=== PATIENT | female | born 1990 | race African-American/Black ===

== ENCOUNTER 2017-10-31 12:30 | Emergency (ER) | payer SELFPAY ==
[2017-10-31 13:10] LABS: Pregnancy Test - Urine (BHCG) POSITIVE (Negative); Pregu Control Background? CLEAR/WHITE (CLR/WHITE); Pregu Control Bar Appear? YES (CONTROL BAR); Specific Gravity 1.006 (1.002-1.036)
[2017-10-31 13:20] LABS: #Basophils 0.1 thou/uL (0.0-0.2); #Eosinphils 0.1 thou/uL (0.0-0.7); #Lymphocytes 2.1 thou/uL (1.20-3.40); #Monocytes 0.6 thou/uL (0.11-0.59); #Neutrophils 5.5 thou/uL (1.40-6.50); %Basophils 1.1 % (0.0-1.0); %Eosinophils 0.7 % (0.0-10.0); %Lymphocytes 24.7 % (21.0-51.0); %Monocytes 7.2 % (0.0-10.0); %Neutrophils 66.3 % (42.0-75.0); Hemoglobin 13.5 g/dL (12.0-16.0); Mean Corpuscular HGB CONC 34.6 g/dL (32.0-36.0); Mean Corpuscular Hemoglobin 32.4 pg (27.0-31.0); Mean Corpuscular Volume 93.8 fl (81.0-99.0); Mean Platelet Volume 6.9 fL (7.4-10.4); Platelet Count 322 thou/uL (130-400); RBC Distribution Width 11.7 % (11.5-14.5); Red Blood Cell (RBC) Count 4.16 mill/uL (4.20-5.40); White Blood Cell (WBC) Count 8.4 thou/uL (4.8-10.8)
[2017-10-31 13:38] LABS: ALT (SGPT) 79 U/L (8-55); AST (SGOT) 34 U/L (5-34); Albumin 4.1 g/dL (3.5-5.0); Alkaline Phosphatase 56 U/L (40-150); Anion Gap 13 mmol/L (10-20); BUN (Urea Nitrogen) 9 mg/dL (7.0-18.7); Bilirubin, Total 0.7 mg/dL (0.2-1.2); Calc. Creatinine Clearance 0 mL/min (70-130); Calcium 9.8 mg/dL (7.8-10.44); Carbon Dioxide 21 mmol/L (22-29); Chloride 106 mmol/L (98-107); Estimated GFR-MDRD Greater than 90; Globulin 3.8 g/dL (2.4-3.5); Glucose 87 mg/dL (70-105); Potassium 3.3 mmol/L (3.5-5.1); Protein, Total 7.9 g/dL (6.0-8.3); Sodium 137 mmol/L (136-145)
== END 2017-10-31 15:03 | disposition home or self-care (01) ==
LOC: ERS 12:30
DX: O99.89 Other specified diseases and conditions complicating pregnancy, childbirth and the puerperium (principal); R11.0 Nausea
CPT/HCPCS: 36415; 80053; 81025; 85025; 93005

== ENCOUNTER 2018-07-01 00:56 | Inpatient (IN) | payer OTHER ==
[2018-07-01 01:33] VITALS: BMI 30.1
[2018-07-01] MEDS ORDERED: Ondansetron HCl/PF 4 MG/2 ML Vial IVP PRN ×4 (01:43→17:12)
[2018-07-01] MEDS ORDERED: Ibuprofen 800 MG TAB PO PRN (01:44)
[2018-07-01] MEDS ORDERED: Lidocaine 1% (PF) 30 ML VIAL SC PRN (01:44)
[2018-07-01] MEDS ORDERED: Morphine 4 MG/ML VIAL IM SCH (01:45)
[2018-07-01] MEDS ORDERED: Ondansetron HCl/PF 4 MG/2 ML Vial IVP SCH (01:45)
[2018-07-01] MEDS ORDERED: Meperidine HCl/PF 25 MG/ML VIAL IM/IV PRN (01:48)
[2018-07-01] MEDS ORDERED: Promethazine HCl 25 MG/ML VIAL IM PRN ×3 (01:48→17:12)
[2018-07-01] MEDS ORDERED: Acetaminophen 500 MG TAB PO PRN (01:48)
[2018-07-01] MEDS ORDERED: Butorphanol Tartrate 1 MG/ML VIAL SLOW IVP PRN (02:14)
[2018-07-01] MEDS ORDERED: Bupivacaine 0.5% 20 ML, fentaNYL Citrate/PF 400 MCG in Sodium Chloride 0.9% 72 ML EPIDURAL SCH (02:15)
[2018-07-01] MEDS ORDERED: DISCONTINUE ALL PREVIOUS NARCOTICS FS SCH (02:15)
--- NOTE | 2018-07-01 02:18 | PDOC.LDHP ---
Addendum entered and electronically signed by Pantera Smith DO 07/01/18 06: 13: Dr Charo Pineda Original Note: Labor and Delivery H&P Chief complaint: contractions HPI: 28 yo @ 40.2 by lmp presents for painful ctx since 46 this AM which have been persistent since onset. Denies LOF, vaginal bleeding, vaginal discharge. Reports good movement. Has associated nausea and vomiting with the contractions. Wishes to have epidural anesthesia for labor pain control. ROS: Gen: Denies fever/chills HEENT: Denies changes in vision CV: Denies cp, edema Respiratory: Denies SOB Abd: Reports n/v, denies diarrhea/constipation OB: Denies LOF, vaginal bleeding, reports good movement Current gestational age (weeks): 40 (+2) Due date: 06/29/18 Dating criteria: last menstrual period Grav: 1 Para: 0 Current complications: other (anemia of ) Current medications: iron Previous surgical history: none Allergies/Adverse Reactions: Allergies Allergy/AdvReac Type Severity Reaction Status Date / Time No Known Allergies Allergy Verified 07/01/18 01:34 Social history: none - Physical Exam Vital signs reviewed and normal: yes General: breathing through contractions, other (moderate discomfort with contractions) Heart: RRR Lungs: nonlabored breathing Abdomen: NTTP Extremeties: no edema FHT: category 1, variability present [place] contractions every: 2-3 minutes - Vaginal Exam cm dilated: 3 Effacement: 75% Station: -1 - OB Labs Blood type: O RH: positive Antibody Screen: negative HIV: negative RPR: negative HEPSAg: negative 1 hour GCT: negative GBS: negative Urine drug screen: not done Rubella: immune - Assessment L&D Assessment: term patient in labor 1) TIUP in labor - ctx every 2-3 minutes - FHT 135 baseline with mod variability, pos accels, no decels - Cervical exam 3.5/80/-1 - will admit to l&d for TIUP in labor; augmentation prn - maternal/ resusc maneuvers as indicated - primary ob provider notified 2) Anemia of : - hemagram and l&d labs pending - monitor - Plan Plan: admit to L&D, labor augmentation if indicated, anesthesia consult for pain management
[2018-07-01 02:23] LABS: Hemoglobin 10.6 g/dL (12.0-16.0); Mean Corpuscular HGB CONC 33.4 g/dL (32.0-36.0); Mean Corpuscular Hemoglobin 30.5 pg (27.0-31.0); Mean Corpuscular Volume 91.3 fL (78.0-98.0); Mean Platelet Volume 9.4 fL (7.4-10.4); Platelet Count 275 thou/uL (130-400); RBC Distribution Width 18.5 % (11.5-14.5); Red Blood Cell (RBC) Count 3.48 mill/uL (4.20-5.40)
[2018-07-01] MEDS ORDERED: Lidocaine HCl/Epinephrine 5 ML AMPUL IJ ONE (02:24)
[2018-07-01] MEDS ORDERED: Lidocaine 2% PF Inj 2 ML VIAL ONE (02:25)
[2018-07-01] MEDS ORDERED: Naloxone HCl 0.4 mg/ml Vial IVP PRN ×2 (02:45)
[2018-07-01] MEDS ORDERED: Eucerin (Mineral Oil/Petrolatum,White) 30 gm Jar TOP PRN (02:45)
[2018-07-01] MEDS ORDERED: ePHEDrine/0.9% NaCl/PF SYRINGE 50 mg/10 ml SLOW IVP PRN (02:45)
[2018-07-01] MEDS ORDERED: Communication Order-Pharmacy FS SCH (02:45)
[2018-07-01] MEDS ORDERED: fentaNYL Citrate/PF 400 MCG, Bupivacaine 0.5% 20 ML in Sodium Chloride 0.9% 72 ML EPIDURAL SCH (02:45)
[2018-07-01] MEDS ORDERED: diphenhydrAMINE 50 MG/ML VIAL IVP PRN (02:45)
[2018-07-01] MEDS ORDERED: Acetaminophen 325 MG TAB PO PRN (02:45)
[2018-07-01] MEDS ORDERED: Lactated Ringer's 500 ML IV PRN (02:45)
[2018-07-01 03:01] LABS: HBSAg Index 0.18 S/CO (0-0.99); HIV (1/2) Antibody/Antigen Non-Reactive (NonReactive); HIV 1/2 INDEX 0.07 S/CO (<1.00); Hep B Surf Ag Non-Reactive S/CO (NonReactive)
[2018-07-01] MEDS: Lactated Ringer's 1,000 ML IV SCH ×3 (03:05→10:03)
[2018-07-01 05:31] LABS: Syphilis Antibody Nonreactive (Nonreactive); Syphilis Antibody Index 0.04 S/CO (<1.00 Non-Reactive)
--- NOTE | 2018-07-01 10:31 | PDOC.LDPN ---
Labor & Delivery Progress Note - Subjective Subjective: comfortable - Objective Vital signs reviewed and normal: yes General: NAD Uterine fundus: non tender SVE: @ [address] Vera Dilation: 8.5 Effacement: 100% Station: 0 FHT: category 2 (2 minute long deceleration with slow recovery, now baseline in 150s/mod amna) [place] contractions every: 1-2 minutes Procedures: AROM AROM: meconium stained fluid (particulate mec) - Assessment (1) Term Code(s): Z34.80 - ENCOUNTER FOR SUPRVSN OF NORMAL , UNSP TRIMESTER Current Visit: Yes Status: Acute Comment: AROM with particulate mec SVE: 8.5/100/[address] 2 minute long decel with recovery -Will monitor closely Plan: continue plan of care
[2018-07-01] MEDS: NS / Oxytocin 40 units/1000ml 1,000 ML IV PRN ×2 (13:45→14:41)
[2018-07-01] MEDS ORDERED: Methylergonovine 0.2 MG/ML VIAL ONE (14:06)
--- NOTE | 2018-07-01 14:37 | PDOC.OPDEL ---
OB Operative/Delivery Note Pre-Delivery Diagnosis: active labor Procedure/Post Delivery Dx: spontaneous vaginal delivery Anesthesia: epidural - Additional Findings/Plan Placenta delivered: spontaneous Repaired Obstetrical Laceration: 2nd degree Estimated blood loss: 925 mL Post delivery plan: routine recovery (Difficult laceration to repair and control bleeding, resulting in above average blood loss. However, vitals stable , uterus firm, placenta appears intact, no cervical lacerations were noted. Perineal perforating vessels were injured and somewhat difficult to control. Patient now stable, recovering with baby in LDR. Methergine and Pitocin given.)
[2018-07-01] MEDS ORDERED: Lanolin Ointment 7 GM TUBE TOP PRN (17:12)
[2018-07-01] MEDS ORDERED: Zolpidem Tartrate 5 MG TAB PO PRN (17:12)
[2018-07-01] MEDS ORDERED: HYDROcodone/Acetaminophen 5/325 mg Tablet PO PRN ×2 (17:12)
[2018-07-01] MEDS ORDERED: Preparation H Ointment 28 GM TUBE PR PRN (17:12)
[2018-07-01] MEDS ORDERED: Misoprostol 200 MCG TAB VAG PRN (17:12)
[2018-07-01] MEDS ORDERED: Bisacodyl 10 MG SUPP PR PRN (17:12)
[2018-07-01] MEDS ORDERED: NS / Oxytocin 40 units/1000ml 1,000 ML IV SCH (17:12)
[2018-07-01] MEDS ORDERED: Benzocaine/Menthol 20-0.5% 60 ML CAN TOP PRN (17:12)
[2018-07-01] MEDS ORDERED: Methylergonovine 0.2 MG/ML VIAL IM PRN (17:12)
[2018-07-01] MEDS ORDERED: diphenhydrAMINE 25 MG CAP PO PRN (17:12)
[2018-07-01] MEDS ORDERED: Milk Of Magnesia 30 ML UDCUP PO PRN (17:12)
[2018-07-01 18:00] LABS: #Lymphocytes 0.8 thou/uL (1.20-3.40); #Neutrophils 13.4 thou/uL (1.40-6.50); %Basophils 0.2 % (0.0-1.0); %Eosinophils 0.1 % (0.0-10.0); %Lymphocytes 5.5 % (21.0-51.0); %Monocytes 6.7 % (0.0-10.0); %Neutrophils 87.4 % (42.0-75.0); Hemoglobin 9.5 g/dL (12.0-16.0); Mean Corpuscular HGB CONC 32.4 g/dL (32.0-36.0); Mean Corpuscular Volume 92.7 fL (78.0-98.0); Mean Platelet Volume 8.7 fL (7.4-10.4); Platelet Count 208 thou/uL (130-400); RBC Distribution Width 18.4 % (11.5-14.5); Red Blood Cell (RBC) Count 3.18 mill/uL (4.20-5.40); White Blood Cell (WBC) Count 15.3 thou/uL (4.8-10.8)
[2018-07-01] MEDS: Ibuprofen 800 MG TAB PO SCH (20:29)
[2018-07-01] MEDS: Docusate Calcium (SURFAK) 240 MG CAP PO SCH (20:29)
[2018-07-01] MEDS ORDERED: Bupivacaine/Epinephrine 0.25% 30 ML VIAL ONE (21:00)
[2018-07-02] MEDS: Ibuprofen 800 MG TAB PO SCH ×3 (05:46→22:43)
[2018-07-02] MEDS: Docusate Calcium (SURFAK) 240 MG CAP PO SCH ×2 (08:50→22:43)
[2018-07-02] MEDS: Ferrous Sulfate 325 MG TAB PO SCH ×2 (08:56→17:45)
[2018-07-02] MEDS ORDERED: Varicella virus, LIVE 0.5 ML VIAL SC ONE (09:00)
[2018-07-02] MEDS ORDERED: Measles/Mumps/Rubella 10 MCG/0.5 ML VIAL SC ONE (09:00)
[2018-07-02] MEDS ORDERED: Adacel (T-DAP) 0.5 ML VIAL IM ONE (09:00)
--- NOTE | 2018-07-02 19:10 | PDOC.PP ---
Post Progress Note PO intake tolerated: yes Flatus: yes Ambulation: yes Vital Signs (12 hours) Temp Pulse Resp BP 07/02/18 12:11 98.1 F 76 18 116/73 07/02/18 08:57 98.3 F 72 16 111/66 Weight Weight 170 lb - Physical Examination General: NAD Cardiovascular: no m/r/g Respiratory: clear to auscultation bilaterally Abdominal: + bowel sounds Extremities: negative homans (B) Neurological: no gross focal deficits Psychiatric: A&Ox3, normal affect Result Diagrams: 07/01/18 17:53 Additional Labs: Post Labs Blood Type O POSITIVE 07/01/18 02:09 Hep Bs Antigen Non-Reactive S/CO (NonReactive) 07/01/18 02:09 - Assessment/Plan PPD 1, doing very well. No complaints. DC Home planned tomorrow.
--- NOTE | 2018-07-03 05:48 | OP ---
DATE OF SERVICE: 07/01/2018 PREOPERATIVE DIAGNOSES: Intrauterine at 40 weeks and 2 days with spontaneous onset of labo r, meconium. POSTOPERATIVE DIAGNOSES: Intrauterine at 40 weeks and 2 days with spontaneous onset of lab or, meconium. PROCEDURE: Spontaneous vaginal delivery over second degree laceration of the perineum with postpartu m hemorrhage. FINDINGS: Viable male infant weighing 3956 grams or 8 pounds 12 ounces, Apgars 8 and 9. Nuchal cord x1 noted at delivery. COMPLICATIONS: hemorrhage, which responded to Methergine and Pitocin administration as we ll as repair of a perineal laceration that was relatively hemorrhagic until fixed. DETAILS OF THE PROCEDURE: Ms. Landeros presented to the emergency room at [facility] where she was admitted for labor. She was augmented with Pitocin. Membranes were artificially ruptured. Meconium was noted. Once completely dilated, she was allowed to push and pushed effective ly delivering a baby in a vertex presentation. Patient began some posterior tearing of the peritoneu m even before the head was out due to relatively small vaginal introitus and a large fetus. Her bone structure was adequate and there was no difficulty delivering the baby. The baby's shoulders once o ut the baby's mouth and nose were bulb suctioned, cord clamped and cut and baby handed waiting attend ants. Fundal massage was performed and the placenta delivered intact 2-0 and 3-0 chromic were used t o repair the posterior perineum and a small extension into the posterior vaginal vault. Some bleedin g was still noted after the repair and 2-0 and 3-0 chromic were used to obtain hemostasis. During th is time, bleeding was relatively brisk resulting in higher than average blood loss; however, administ ration of Methergine and Pitocin seemed to bring the bleeding to a normal level by the end of the per itoneal repair. Patient was observed closely and allowed to recover in the labor and delivery room.
[2018-07-03] MEDS: Ibuprofen 800 MG TAB PO SCH (06:09)
[2018-07-03 07:45] VITALS: BP 112/63; TEMP 98.1
[2018-07-03] MEDS: Ferrous Sulfate 325 MG TAB PO SCH (09:42)
[2018-07-03] MEDS: Docusate Calcium (SURFAK) 240 MG CAP PO SCH (09:43)
== END 2018-07-03 12:15 | disposition home or self-care (01) | DRG 774 ==
LOC: L&D/OP 00:56 → L&D 02:12 → 3SE 16:58
PROVIDERS: ADMIT Obstetrics & Gynecology; ATTEND Obstetrics & Gynecology
PROC: 10E0XZZ Delivery of Products of Conception, External Approach (ICD-10-PCS; principal; 2018-07-01)
PROC: 0KQM0ZZ Repair Perineum Muscle, Open Approach (ICD-10-PCS; 2018-07-01)
PROC: 10907ZC Drainage of Amniotic Fluid, Therapeutic from Products of Conception, Via Natural or Artificial Opening (ICD-10-PCS; 2018-07-01)
DX: O48.0 Post-term pregnancy (principal); O72.1 Other immediate postpartum hemorrhage; Z3A.40 40 weeks gestation of pregnancy; Z37.0 Single live birth; O70.1 Second degree perineal laceration during delivery; O69.81X0 Labor and delivery complicated by cord around neck, without compression, not applicable or unspecified; O77.0 Labor and delivery complicated by meconium in amniotic fluid; O99.02 Anemia complicating childbirth; D64.9 Anemia, unspecified
CPT/HCPCS: 36415; 51702; 85027; 86780; 86850; 86900; 86901; 87340; 87389; 99285; J2001; J2210; J2405; J3010; J3490; J7050

== ENCOUNTER 2019-02-07 13:52 | Emergency (ER) | payer OTHER | END 2019-02-07 14:56 | disposition left against medical advice (07) | LOC: ERS 13:52 | DX: Z53.21 Procedure and treatment not carried out due to patient leaving prior to being seen by health care provider (principal) ==

== ENCOUNTER 2020-02-24 03:59 | Outpatient (CLI) | payer OTHER ==
[2020-02-24 18:17] LABS: SARS-CoV-2 MS2 Positive; SARS-CoV-2 N Gene Negative; SARS-CoV-2 S Gene Negative; SARS-CoV-2 orf1ab Negative
== END 2020-02-24 04:00 | disposition home or self-care (01) ==
LOC: ERS 03:59
PROVIDERS: ATTEND Obstetrics & Gynecology
DX: Z01.812 Encounter for preprocedural laboratory examination (principal); Z11.59 Encounter for screening for other viral diseases
CPT/HCPCS: 87635; U0003

== ENCOUNTER 2020-02-25 19:15 | Inpatient (IN) | payer OTHER ==
[~2020-02-25 19:15] MED LIST: Bupivacaine/Epinephrine 0.25% 30 ML VIAL ONE
[2020-02-25 23:41] VITALS: BMI 33.0
[2020-02-25] MEDS ORDERED: NS w/ Oxytocin 10 units 500 ML IV SCH ×2 (23:45)
[2020-02-25] MEDS ORDERED: Zolpidem Tartrate 5 MG TAB PO PRN (23:49)
[2020-02-25] MEDS ORDERED: Promethazine HCl 25 MG/ML VIAL IM PRN (23:49)
[2020-02-25] MEDS ORDERED: NS / Oxytocin 40 units/1000ml 1,000 ML IV PRN (23:49)
[2020-02-25] MEDS ORDERED: Docusate 100 MG CAP PO PRN (23:49)
[2020-02-25] MEDS ORDERED: Lidocaine 1% (PF) 30 ML VIAL SC PRN (23:49)
[2020-02-25] MEDS ORDERED: Misoprostol 200 MCG TAB PR PRN (23:49)
[2020-02-25] MEDS ORDERED: Acetaminophen 500 MG TAB PO PRN (23:49)
[2020-02-25] MEDS ORDERED: Butorphanol Tartrate 1 MG/ML VIAL SLOW IVP PRN (23:49)
[2020-02-25] MEDS ORDERED: HYDROcodone/Acetaminophen 5/325 mg Tablet PO PRN ×2 (23:49)
[2020-02-25] MEDS ORDERED: Methylergonovine 0.2 MG/ML VIAL IM PRN (23:49)
[2020-02-25] MEDS ORDERED: hydrALAZINE 20 MG/ML VIAL SLOW IVP PRN (23:49)
[2020-02-25] MEDS ORDERED: Diphenoxylate HCl/Atropine Tablet PO PRN ×2 (23:49)
[2020-02-25] MEDS ORDERED: Ibuprofen 800 MG TAB PO PRN (23:49)
[2020-02-25] MEDS ORDERED: Ondansetron PF 4 MG/2 ML Vial IVP PRN (23:49)
[2020-02-25] MEDS ORDERED: Carboprost 250 MCG/ML AMP IM PRN (23:49)
--- NOTE | 2020-02-25 23:54 | PDOC.LDHP ---
Labor and Delivery H&P Chief complaint: scheduled induction HPI: 30 y/o at 39 weeks and 1 day for term induction of labor. Current gestational age (weeks): 39 Due date: 03/03/20 Grav: 2 Para: 1 Current complications: none Abnormal US findings: No Current medications: pre- vitamins Previous surgical history: none Allergies/Adverse Reactions: Allergies Allergy/AdvReac Type Severity Reaction Status Date / Time No Known Allergies Allergy Verified 01/04/20 09:50 Social history: none - Physical Exam Vital signs reviewed and normal: yes General: NAD, resting Heart: RRR Lungs: CTAB Abdomen: gravid Extremeties: no edema FHT: category 1 - Vaginal Exam cm dilated: 1 - Assessment L&D Assessment: elective induction at term - Plan Plan: admit to L&D, cervical ripening
[2020-02-26] MEDS: Misoprostol 100 MCG TAB VAG SCH ×3 (00:11→15:56)
[2020-02-26] MEDS: Lactated Ringer's 1,000 ML IV SCH ×3 (00:11→15:56)
[2020-02-26 00:53] LABS: Hemoglobin 9.7 g/dL (12.0-16.0); Mean Corpuscular HGB CONC 31.8 g/dL (32.0-36.0); Mean Corpuscular Hemoglobin 27.9 pg (27.0-31.0); Mean Corpuscular Volume 87.7 fL (78.0-98.0); Platelet Count 291 thou/uL (130-400); RBC Distribution Width 18.7 % (11.5-14.5); Red Blood Cell (RBC) Count 3.48 mill/uL (4.20-5.40); White Blood Cell (WBC) Count 6.9 thou/uL (4.8-10.8)
[2020-02-26 01:30] LABS: HBSAg Index 0.17 S/CO (0-0.99); Hep B Surf Ag Non-Reactive S/CO (NonReactive)
[2020-02-26 05:06] LABS: Syphilis Antibody Nonreactive (Nonreactive); Syphilis Antibody Index 0.04 S/CO (<1.00 Non-Reactive)
[2020-02-26] MEDS ORDERED: Fentanyl 4 mcg/Bup 0.1% Cadd 100 ML ONE (08:35)
[2020-02-26] MEDS ORDERED: diphenhydrAMINE 50 MG/ML VIAL IVP PRN (09:09)
[2020-02-26] MEDS ORDERED: Naloxone HCl 0.4 mg/ml Vial IVP PRN ×2 (09:09)
[2020-02-26] MEDS ORDERED: Lactated Ringer's 500 ML IV PRN (09:09)
[2020-02-26] MEDS ORDERED: Promethazine HCl 25 MG/ML VIAL IM PRN ×2 (09:09→15:56)
[2020-02-26] MEDS ORDERED: Acetaminophen 325 MG TAB PO PRN (09:09)
[2020-02-26] MEDS ORDERED: EPHEDRINE 25 MG/5 ML SYRINGE SLOW IVP PRN (09:09)
[2020-02-26] MEDS ORDERED: Ondansetron PF 4 MG/2 ML Vial IVP PRN ×2 (09:09→15:56)
[2020-02-26] MEDS ORDERED: Fentanyl 4 mcg/Bupivacaine 0.1% Cassette 100 ML EPIDURAL SCH (09:15)
[2020-02-26] MEDS ORDERED: Communication Order-Pharmacy FS SCH (09:15)
[2020-02-26 14:46] LABS: Actual Bicarbonate (HCO3a) 22.6 mEq/L (22-28); Base Excess (BEa) -7.2 mEq/L (-2.0 to +3.0)
[2020-02-26 14:48] LABS: Actual Bicarbonate (HCO3v) 21 mEq/L (22-28); Base Excess -6.2 mEq/L (-2.0 to +3.0); pH (Cord, venous) 7.28 (7.32-7.43)
[2020-02-26] MEDS ORDERED: Zolpidem Tartrate 5 MG TAB PO PRN (15:56)
[2020-02-26] MEDS ORDERED: diphenhydrAMINE 25 MG CAP PO PRN (15:56)
[2020-02-26] MEDS ORDERED: Benzocaine-Menthol 82.5 ML CAN TOP PRN (15:56)
[2020-02-26] MEDS ORDERED: Bisacodyl 10 MG SUPP PR PRN (15:56)
[2020-02-26] MEDS ORDERED: hydrALAZINE 20 MG/ML VIAL SLOW IVP PRN (15:56)
[2020-02-26] MEDS ORDERED: Lanolin Ointment 7 GM TUBE TOP PRN (15:56)
[2020-02-26] MEDS ORDERED: Milk Of Magnesia 30 ML UDCUP PO PRN (15:56)
[2020-02-26] MEDS ORDERED: Preparation H Ointment 28 GM TUBE PR PRN (15:56)
[2020-02-26] MEDS ORDERED: NS / Oxytocin 40 units/1000ml 1,000 ML IV SCH (15:56)
[2020-02-26] MEDS ORDERED: Methylergonovine 0.2 MG/ML VIAL IM PRN (15:56)
[2020-02-26] MEDS ORDERED: HYDROcodone/Acetaminophen 5/325 mg Tablet PO PRN ×2 (15:56)
[2020-02-26] MEDS: Ferrous Sulfate 325 MG TAB PO SCH (18:02)
[2020-02-26] MEDS: Docusate Calcium (SURFAK) 240 MG CAP PO SCH (21:54)
[2020-02-26] MEDS: Ibuprofen 800 MG TAB PO SCH (21:54)
[2020-02-27] MEDS: Ibuprofen 800 MG TAB PO SCH ×3 (05:39→13:47)
[2020-02-27 05:58] LABS: Hemoglobin 11.1 g/dL (12.0-16.0); Mean Corpuscular Hemoglobin 28.5 pg (27.0-31.0); Mean Platelet Volume 9.7 fL (7.4-10.4); Platelet Count 265 thou/uL (130-400); RBC Distribution Width 18.6 % (11.5-14.5); Red Blood Cell (RBC) Count 3.89 mill/uL (4.20-5.40); White Blood Cell (WBC) Count 9.8 thou/uL (4.8-10.8)
[2020-02-27] MEDS: Ferrous Sulfate 325 MG TAB PO SCH ×2 (07:33→16:07)
[2020-02-27] MEDS: Docusate Calcium (SURFAK) 240 MG CAP PO SCH (07:33)
[2020-02-27] MEDS ORDERED: Varicella virus, LIVE 0.5 ML VIAL SC ONE (09:00)
[2020-02-27] MEDS ORDERED: Measles/Mumps/Rubella 10 MCG/0.5 ML VIAL SC ONE (09:00)
[2020-02-27] MEDS ORDERED: Prenatal Vitamin 1 TAB PO SCH (09:00)
[2020-02-27] MEDS ORDERED: Adacel (T-DAP) 0.5 ML SYRINGE IM ONE (09:00)
[2020-02-27 11:41] VITALS: BP 116/74; TEMP 98
--- NOTE | 2020-02-28 08:45 | DN ---
DATE OF PROCEDURE: 02/26/2020 TIME: 1357 hours central daylight savings time. PREOPERATIVE DIAGNOSIS: Intrauterine at 39 weeks and one day with a term induction of labor. POSTOPERATIVE DIAGNOSES: 1. Intrauterine at 39 weeks and one day with a term induction of labor. 2. Terminal bradycardia encountered when the patient began pushing. PROCEDURE PERFORMED: Vacuum assisted vaginal delivery using the Mityvac system. FINDINGS: Viable female weighing 3484 g or 7 pounds 11 ounces with a nuchal cord tightly around the neck at delivery, with Apgars of 1 minute 4, 5 minutes 8 , and 10 minutes of 9. QUANTITATIVE BLOOD LOSS: 320 mL. COMPLICATIONS: None. PROCEDURE IN DETAIL: The patient presented to [facility] where she was admitted to the labor and delivery service. The patient underwent labor with normal cervical dilatation until she was found to be completely dilated. The patient began pushing after membranes were artificially ruptured. Her cervix was completely dilated and she pushed well. However, we began encountering bradycardia almost immediately. It was decided after a couple of minutes to expedite delivery using the vacuum. The Mityvac vacuum was applied to the head and used through two contractions resulting in the delivery of the baby. A nuchal cord was reduced on the perineum, which was relatively tight. The baby was placed on mom's abdomen while the cord was quickly clamped and cut and baby handed over to the waiting baby team. The NICU team had to come into the room and was available immediately at delivery. Pitocin was started. Placenta delivered with fundal massage, intact and without difficulties. No injuries were noted. Cytotec 800 mcg was placed per rectum after the uterus was found to be somewhat floppy and several minutes later, it was checked again and was very firm at that time. Hemostasis was assured. Quantitative blood loss was calculated. Inspection of the cervix, vaginal vault, and perineum did not reveal any lacerations needing suturing. Once again, hemostasis was within normal limits and the patient was allowed to recover in the labor and delivery room. Baby went to nursery. Job ID: [id number] [id number]
== END 2020-02-27 16:40 | disposition home or self-care (01) | DRG 807 ==
LOC: L&D 22:40 → 3SW 02-26 17:15
PROVIDERS: ADMIT Obstetrics & Gynecology; ATTEND Obstetrics & Gynecology
PROC: 10D07Z6 Extraction of Products of Conception, Vacuum, Via Natural or Artificial Opening (ICD-10-PCS; principal; 2020-02-25)
PROC: 10907ZC Drainage of Amniotic Fluid, Therapeutic from Products of Conception, Via Natural or Artificial Opening (ICD-10-PCS; 2020-02-25)
PROC: 3E0P7VZ Introduction of Hormone into Female Reproductive, Via Natural or Artificial Opening (ICD-10-PCS; 2020-02-25)
PROC: 3E033VJ Introduction of Other Hormone into Peripheral Vein, Percutaneous Approach (ICD-10-PCS; 2020-02-25)
DX: O69.1XX0 Labor and delivery complicated by cord around neck, with compression, not applicable or unspecified (principal); Z37.0 Single live birth; O99.89 Other specified diseases and conditions complicating pregnancy, childbirth and the puerperium; R00.1 Bradycardia, unspecified; Z3A.39 39 weeks gestation of pregnancy
CPT/HCPCS: 36415; 82805; 85027; 86780; 86850; 86900; 86901; 87340; J0595; J2590

== ENCOUNTER 2021-03-03 10:26 | Emergency (ER) | payer OTHER ==
[2021-03-03] MEDS ORDERED: Acetaminophen 500 MG TAB ONE (11:30)
[2021-03-03] MEDS ORDERED: Ketorolac Tromethamine 30 MG/ML VIAL ONE (11:31)
[2021-03-03] MEDS ORDERED: Ondansetron PF 4 MG/2 ML Vial ONE (11:31)
[2021-03-03] MEDS ORDERED: cefTRIAXone\\ROCEPHIN 2 GM VIAL ONE (11:31)
[2021-03-03 11:35] LABS: #Lymphocytes 1.1 thou/uL (1.20-3.40); #Monocytes 0.7 thou/uL (0.11-0.59); #Neutrophils 5.7 thou/uL (1.40-6.50); %Basophils 0.2 % (0.0-1.0); %Eosinophils 0.1 % (0.0-10.0); %Lymphocytes 14.5 % (21.0-51.0); %Monocytes 8.7 % (0.0-10.0); %Neutrophils 76.6 % (42.0-75.0); Hemoglobin 15.2 g/dL (12.0-16.0); Mean Corpuscular HGB CONC 32.7 g/dL (32.0-36.0); Mean Corpuscular Hemoglobin 29.5 pg (27.0-31.0); Mean Corpuscular Volume 90.1 fL (78.0-98.0); Mean Platelet Volume 7.9 fL (7.4-10.4); Platelet Count 282 thou/uL (130-400); RBC Distribution Width 11.7 % (11.5-14.5); Red Blood Cell (RBC) Count 5.17 mill/uL (4.20-5.40); White Blood Cell (WBC) Count 7.4 thou/uL (4.8-10.8)
[2021-03-03 11:59] LABS: BHCG - Serum Negative (NEGATIVE); Pregs Control Background? CLEAR/WHITE (CLR/WHITE); Pregs Control Bar Appear? YES (CONTROL BAR)
[2021-03-03 12:02] LABS: ALT (SGPT) 43 U/L (8-55); AST (SGOT) 34 U/L (5-34); Albumin 4.4 g/dL (3.5-5.0); Alkaline Phosphatase 65 U/L (40-110); Anion Gap 15 mmol/L (10-20); BUN (Urea Nitrogen) 14 mg/dL (7.0-18.7); Bilirubin, Total 0.7 mg/dL (0.2-1.2); Calc. Creatinine Clearance 0 mL/min (70-130); Calcium 9.5 mg/dL (7.8-10.44); Carbon Dioxide 20 mmol/L (22-29); Chloride 99 mmol/L (98-107); Globulin 4.1 g/dL (2.4-3.5); Glucose 120 mg/dL (70-105); Potassium 3.3 mmol/L (3.5-5.1); Protein, Total 8.5 g/dL (6.0-8.3); Sodium 131 mmol/L (136-145)
[2021-03-03 13:08] LABS: Bacteria/HPF None Seen HPF (None Seen); Bilirubin Negative (Negative); Blood, Urine Negative (Negative); Clarity Clear (Clear); Glucose, Urine (Dipstick) Normal (Negative); Ketone, Urine Trace mg/dL (Negative); Leukocyte Negative Leu/uL (Negative); Nitrite Negative (Negative); Protein, Urine (Dipstick) 30 mg/dL (Neg-Trace); RBC/HPF 0-3 HPF (0-3); WBC/HPF 0-3 HPF (0-3); pH, Urine 6.5 (5.0-9.0)
[2021-03-03 13:10] LABS: Specific Gravity, Urine Greater than 1.060 (1.002-1.036)
[2021-03-03] MEDS ORDERED: Iopamidol-370 76% 500 ML 1 ML ONE (13:42)
[2021-03-03 20:31] LABS: SARS-CoV-2 PCR by NAA DETECTED (NotDetected)
== END 2021-03-03 14:02 | disposition home or self-care (01) ==
LOC: ERS 10:26
DX: U07.1 COVID-19 (principal); J12.82 Pneumonia due to coronavirus disease 2019; R00.0 Tachycardia, unspecified
CPT/HCPCS: 36415; 71045; 74177; 80053; 81003; 81015; 83605; 84703; 85025; 87040; 87086; 87635; 93005; 96365; 96375; J0696; J1885; J2405; Q9967; U0003; U0005

== ENCOUNTER 2021-03-06 19:54 | Emergency (ER) | payer OTHER ==
[~2021-03-06 19:54] MED LIST changes: -Bupivacaine/Epinephrine 0.25% 30 ML VIAL ONE; +Iopamidol-370 76% 500 ML 1 ML ONE
[2021-03-06] MEDS ORDERED: Ketorolac Tromethamine 30 MG/ML VIAL ONE (21:10)
[2021-03-06] MEDS ORDERED: Dexamethasone 10 MG/ML VIAL ONE (21:10)
[2021-03-06 21:49] LABS: #Lymphocytes 2.1 thou/uL (1.20-3.40); #Monocytes 0.4 thou/uL (0.11-0.59); #Neutrophils 2.8 thou/uL (1.40-6.50); %Basophils 0.8 % (0.0-1.0); %Eosinophils 0.2 % (0.0-10.0); %Lymphocytes 39.6 % (21.0-51.0); %Monocytes 6.8 % (0.0-10.0); %Neutrophils 52.6 % (42.0-75.0); Hemoglobin 14.5 g/dL (12.0-16.0); Mean Corpuscular HGB CONC 35.8 g/dL (32.0-36.0); Mean Corpuscular Hemoglobin 32.2 pg (27.0-31.0); Mean Corpuscular Volume 90.1 fL (78.0-98.0); Mean Platelet Volume 8.1 fL (7.4-10.4); Platelet Count 191 thou/uL (130-400); White Blood Cell (WBC) Count 5.4 thou/uL (4.8-10.8)
[2021-03-06 22:00] LABS: BHCG - Serum Negative (NEGATIVE); Pregs Control Background? CLEAR/WHITE (CLR/WHITE); Pregs Control Bar Appear? YES (CONTROL BAR)
[2021-03-06 22:11] LABS: ALT (SGPT) 50 U/L (8-55); AST (SGOT) 52 U/L (5-34); Albumin 3.7 g/dL (3.5-5.0); Alkaline Phosphatase 56 U/L (40-110); Anion Gap 18 mmol/L (10-20); BUN (Urea Nitrogen) 12 mg/dL (7.0-18.7); Bilirubin, Total 0.6 mg/dL (0.2-1.2); CK (CPK) 130 U/L (29-168); Calc. Creatinine Clearance 0 mL/min (70-130); Calcium 8.7 mg/dL (7.8-10.44); Carbon Dioxide 22 mmol/L (22-29); Chloride 102 mmol/L (98-107); Globulin 3.6 g/dL (2.4-3.5); Glucose 82 mg/dL (70-105); Lipase 24 U/L (8-78); Potassium 3.5 mmol/L (3.5-5.1); Protein, Total 7.3 g/dL (6.0-8.3); Sodium 138 mmol/L (136-145)
== END 2021-03-06 23:18 | disposition home or self-care (01) ==
LOC: ERS 19:54
DX: U07.1 COVID-19 (principal); J12.82 Pneumonia due to coronavirus disease 2019
CPT/HCPCS: 71045; 71275; 80053; 82550; 83690; 83880; 84484; 84703; 85025; 85379; 93005; 94760; 96374; 96375; J1100; J1885; Q9967

== ENCOUNTER 2022-09-22 10:00 | Emergency (ER) | payer OTHER ==
[2022-09-22 10:27] LABS: #Monocytes 0.4 thou/uL (0.11-0.59); #Neutrophils 5.4 thou/uL (1.40-6.50); %Basophils 0.2 % (0.0-1.0); %Eosinophils 0.2 % (0.0-10.0); %Lymphocytes 25.3 % (21.0-51.0); %Monocytes 5.7 % (0.0-10.0); %Neutrophils 68.6 % (42.0-75.0); Hemoglobin 14.4 g/dL (12.0-16.0); Mean Corpuscular HGB CONC 34.1 g/dL (32.0-36.0); Mean Corpuscular Hemoglobin 32.1 pg (27.0-31.0); Mean Corpuscular Volume 94.1 fl (78.0-98.0); Mean Platelet Volume 7.3 fL (7.4-10.4); Platelet Count 338 10x3/uL (130-400); RBC Distribution Width 11.1 % (11.5-14.5); Red Blood Cell (RBC) Count 4.49 mill/uL (4.20-5.40); White Blood Cell (WBC) Count 7.8 10x3/uL (4.8-10.8)
[2022-09-22 10:58] LABS: ALT (SGPT) 16 U/L (8-55); AST (SGOT) 17 U/L (5-34); Albumin 4.6 g/dL (3.5-5.0); Alkaline Phosphatase 47 U/L (40-110); Anion Gap 15 mmol/L (10-20); BUN (Urea Nitrogen) 16 mg/dL (7.0-18.7); Bilirubin, Total 1.4 mg/dL (0.2-1.2); Calc. Creatinine Clearance 0 mL/min (70-130); Calcium 9.7 mg/dL (7.8-10.44); Carbon Dioxide 21 mmol/L (22-29); Chloride 103 mmol/L (98-107); Estimated GFR 117; Globulin 3.2 g/dL (2.4-3.5); Glucose 87 mg/dL (70-105); Potassium 3.9 mmol/L (3.5-5.1); Protein, Total 7.8 g/dL (6.0-8.3); Sodium 135 mmol/L (136-145)
[2022-09-22 11:25] LABS: Bacteria/HPF 2+ HPF (None Seen); Bilirubin 1+ (Negative); Blood, Urine Negative (Negative); Clarity Clear (Clear); Glucose, Urine (Dipstick) Normal (Negative); Ketone, Urine Greater than 150 mg/dL (Negative); Leukocyte 75 Leu/uL (Negative); Nitrite Negative (Negative); Protein, Urine (Dipstick) 50 mg/dL (Neg-Trace); RBC/HPF 0-3 HPF (0-3); Specific Gravity, Urine 1.034 (1.002-1.036)
[2022-09-22] MEDS ORDERED: Ondansetron PF 4 MG/2 ML Vial ONE (12:31)
== END 2022-09-22 13:34 | disposition home or self-care (01) ==
LOC: ERS 10:00
DX: O21.9 Vomiting of pregnancy, unspecified (principal); O99.281 Endocrine, nutritional and metabolic diseases complicating pregnancy, first trimester; E86.0 Dehydration; O99.891 Other specified diseases and conditions complicating pregnancy; R82.71 Bacteriuria; Z3A.08 8 weeks gestation of pregnancy
CPT/HCPCS: 36415; 80053; 81003; 81015; 84702; 85025; 87086; 96361; 96374; J2405